=== PATIENT | male | born 1965 | race American Indian/Alaskan Native ===

== ENCOUNTER 2017-06-30 12:38 | Outpatient (CLI) | payer OTHER ==
--- NOTE | 2017-06-30 14:14 | Cat Scan Report ---
CT HEAD WITHOUT CONTRAST INDICATION: Traumatic brain injury with cognitive impairment. COMPARISON: None similar at this institution. FINDINGS: Noncontrast head CT demonstrates normal, symmetric ventricles and sulci without acute or recent infarct, hemorrhage, mass effect or midline shift. No abnormal extra-axial fluid collections. Posterior fossa structures and basilar cisterns appear within normal limits. Symmetric eye globes. Small rightward nasal septal spur. Mild left maxillary sinus mucosal thickening. Clear remainder imaged paranasal sinuses and mastoid air cells. Intact calvarium. Normal overlying scalp soft tissues. Few radiopaque dental material incidentally noted. Right more than left external auditory canal debris may be directly visualized. 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 CONCLUSION: No acute intracranial CT abnormality with various incidental findings, including mild left maxillary sinusitis, as described. Thank you for the opportunity to participate in this patient's care.
== END 2017-06-30 12:39 | disposition home or self-care (01) ==
LOC: CT 12:38
PROVIDERS: ATTEND Internal Medicine
DX: S06.9X0A Unspecified intracranial injury without loss of consciousness, initial encounter (principal); J32.0 Chronic maxillary sinusitis; G31.84 Mild cognitive impairment of uncertain or unknown etiology; X58.XXXA Exposure to other specified factors, initial encounter; Y93.89 Activity, other specified; Y92.89 Other specified places as the place of occurrence of the external cause; Y99.8 Other external cause status
CPT/HCPCS: 70450